=== PATIENT | male | born 1985 | race African-American/Black ===

== ENCOUNTER 2020-07-25 14:27 | Emergency (ER) | payer SELFPAY ==
--- NOTE | 2020-07-25 15:54 | EDM.PDOC ---
ED HPI GENERAL MEDICAL PROBLEM - General Stated Complaint: COVID SYMPTOMS Time Seen by Provider: 07/25/20 14:53 Source of Information: Reports: Patient - History of Present Illness INITIAL COMMENTS - FREE TEXT/NARRATIVE: Tony is a 35 y/o male who comes to the ER with complaints of loss of smell and taste for the last few days. He has been at home with congestion adn sore throat since Wednesday. He has felt hot and cold. One of his roommates has been ill with similar sx. 2 family members did have COVID, but it has been 2 months ago now. Has been congested and had a sore irritated throat with a hacky cough that is worse when he tries sleep. - Related Data Allergies Allergy/AdvReac Type Severity Reaction Status Date / Time No Known Allergies Allergy Verified 07/25/20 15:46 Home Meds: Home Meds Amoxicillin 875 mg PO BID 10 Days #20 tab 07/25/20 [Rx] Fluticasone Propionate [Flonase] 2 sprays NASBOTH DAILY #1 bottle 07/25/20 [Rx] Review of Systems - Review of Systems Review Of Systems: See Below Constitutional: Reports: Diaphoresis, Fever Eyes: Reports: No Symptoms Ears: Reports: No Symptoms Nose: Reports: Congestion, Purulent Discharge Mouth/Throat: Reports: Pain, Hoarse Voice Respiratory: Reports: Cough Cardiovascular: Reports: No Symptoms GI/Abdominal: Reports: No Symptoms Genitourinary: Reports: No Symptoms Musculoskeletal: Reports: No Symptoms Skin: Reports: Diaphoresis Neurological: Reports: Headache Psychiatric: Reports: No Symptoms ED EXAM, GENERAL - Physical Exam Exam: See Below Exam Limited By: No Limitations General Appearance: Alert, WD/WN, No Apparent Distress (Adult male.) Eye Exam: Bilateral Eye: PERRL Ears: Normal External Exam, Normal Canal, Hearing Grossly Normal Ear Exam: Bilateral Ear: TM Dull (retracted) Nose: Normal Inspection, Normal Mucosa, No Blood Throat/Mouth: Normal Lips, Normal Teeth, Normal Gums, Normal Voice, Inflammation Head: Atraumatic, Normocephalic Neck: Normal Inspection, Supple, Non-Tender Respiratory/Chest: No Respiratory Distress, Lungs Clear, Chest Non-Tender Cardiovascular: Normal Peripheral Pulses, Regular Rate, Rhythm, No Murmur GI/Abdominal: Normal Bowel Sounds, Soft, Non-Tender (Male) Exam: Deferred Rectal (Males) Exam: Deferred Back Exam: Normal Inspection Extremities: Normal Inspection, Normal Range of Motion, No Pedal Edema, Normal Capillary Refill Neurological: Alert, Oriented, CN II-XII Intact, No Motor/Sensory Deficits Psychiatric: Normal Affect Skin Exam: Warm, Dry, Intact, Normal Color Lymphatic: No Adenopathy Course - Vital Signs Text/Narrative:: 1453 The patient was seen by the [facility]. COVID test was done. 1540 COVID test negative. Results reviewed with the patient. Will treat for a Sinus Infection since he has been ill now 8 days. He was given discharge instructions and remained stable until departure from the ER. - Orders/Labs/Meds Labs: Laboratory Tests 07/25/20 Range/Units 14:40 SARS CoV-2 RNA Rapid POLLO Negative (NEGATIVE) Departure - Departure Time of Disposition: 15:47 Disposition: Home, Self-Care 01 Condition: Good Clinical Impression: Acute sinusitis Qualifiers: Sinusitis location: unspecified location Recurrence: non-recurrent Qualified Code(s): J01.90 - Acute sinusitis, unspecified - Discharge Information Prescriptions: Amoxicillin 875 mg PO BID 10 Days #20 tab Fluticasone Propionate [Flonase] 2 sprays NASBOTH DAILY #1 bottle Instructions: Sinusitis, Adult, Probiotics Forms: ED Return to Work/School Form - Assessment/Plan Assessment:: 1)Acute Sinusitis Plan: -Amoxicillin 875mg oral 2x daily for 10 days #20(Rx) -Ibuprofen/acetaminophen as neede -Pseudoephedrine and Cetirizine or Fexofenadine are helpful -Fluticasone propionate (50mcg/sp) 2 sprays each nare daily -Drink plenty of fluids -Rest -Work note written -Return to the ER or clinic if your condition is not improving as expected in the next 7 days or you have any worsening of symptoms
== END 2020-07-25 16:10 | disposition home or self-care (01) ==
LOC: VM.ED 14:27
DX: J01.90 Acute sinusitis, unspecified (principal); Z20.822 Contact with and (suspected) exposure to COVID-19
CPT/HCPCS: 99283; U0002